=== PATIENT | female | born 1960 ===

== ENCOUNTER → 2023-10-09 | Outpatient (CLI) | payer OTHER ==
[2023-10-09 13:06] LABS: Calcium 9.6 mg/dL (8.5-10.1); Potassium 3.9 mmol/L (3.5-5.1)
[2023-10-09 13:13] LABS: Albumin 4.6 g/dL (3.2-4.8)
[2023-10-09 13:14] LABS: Phosphorus 3.3 mg/dL (2.4-5.1)
== END | disposition home or self-care (01) ==
LOC: LAB 12:14
PROVIDERS: ATTEND Family Medicine
DX: R94.4 Abnormal results of kidney function studies (principal)
CPT/HCPCS: 36415; 80069

== ENCOUNTER 2024-02-07 12:31 | Emergency (ER) | payer MEDICAID, OTHER ==
[~2024-02-07] VITALS: Ht 157.5 cm; Wt 90.0 kg
[2024-02-07] MEDS ORDERED: ASPirin 81 mg TAB PO ONE (12:45)
[2024-02-07] MEDS ORDERED: PROM1SOL4 PO (14:10)
[2024-02-07] MEDS ORDERED: AUG875T PO (14:10)
[2024-02-07] MEDS ORDERED: GUAI600T78 PO (14:11)
[2024-02-07 14:42] VITALS: BP 139/91; PULSE 90; RESP 20; TEMP 97.5; O2SAT 97
[2024-02-08] MEDS ORDERED: NITROGLYCERIN 0.4 MG SL TAB SL ONE (10:00)
== END 2024-02-07 14:46 | disposition home or self-care (01) ==
LOC: ER 12:33
DX: J06.9 Acute upper respiratory infection, unspecified (principal); E11.9 Type 2 diabetes mellitus without complications; M79.10 Myalgia, unspecified site
CPT/HCPCS: 71045